=== PATIENT | male | born 1990 | race Two or more races ===

== ENCOUNTER 2020-01-30 15:07 | Emergency (ER) | payer SELFPAY ==
[2020-01-30] MEDS ORDERED: TETRACAINE HCL 0.5% OPH SOLN 4 ML OS ONE (17:15)
--- NOTE | 2020-01-30 17:17 | ER Document Report ---
ED Eye Complaint - General Chief Complaint: Eye Injury Stated Complaint: LEFT EYE INJURY Time Seen by Provider: 01/30/20 17:14 Primary Care Provider: [facility] [Provider Group] - Follow up as needed ZULAY IZQUIERDO DO [ACTIVE STAFF] - Follow up tomorrow Mode of Arrival: Ambulatory Information source: Patient Notes: Patient states that he was playing [employer] with family member and accidentally got shot in the eye 5 days ago. Patient states that since then the pain to the eye has been off and on. Patient states that he does feel light sen sitive. Patient denies any use of glasses or contact lenses. - HPI Onset: Other - 5 days ago Eye location: Left Injury: Yes Occurred at: Home Pain Level: 4 Exposure: Direct trauma Safety glasses worn: No Contact lenses worn: No Associated symptoms: Burning, Pain, Photophobia, Other - Tearing - Related Data Allergies/Adverse Reactions: No Known Allergies Allergy (Verified 01/30/20 17:13) Past Medical History - General Information source: Patient - Social History Smoking Status: Never Smoker Frequency of alcohol use: Occasional Drug Abuse: Marijuana Occupation: [employer] Lives with: Family Family History: Reviewed & Not Pertinent Renal/ Medical History: Reports: Hx Kidney Stones Surgical Hx: Negative Review of Systems - Review of Systems Constitutional: No symptoms reported EENT: Eye pain, Tearing Cardiovascular: No symptoms reported Respiratory: No symptoms reported Gastrointestinal: No symptoms reported. denies: Nausea, Vomiting Genitourinary: No symptoms reported Male Genitourinary: No symptoms reported Musculoskeletal: No symptoms reported Skin: No symptoms reported Hematologic/Lymphatic: No symptoms reported Neurological/Psychological: No symptoms reported Physical Exam - Vital signs Vitals: Temp Pulse Resp BP Pulse Ox 98.5 F 80 18 157/85 H 97 01/30/20 15:37 01/30/20 15:37 01/30/20 15:37 01/30/20 15:37 01/30/20 15:37 - General General appearance: Appears well, Alert In distress: None - HEENT Head: Normocephalic Eyes: Tears Conjunctiva: Injected - Left eye Cornea: Normal, Other - negative angie test. No: Corneal abrasion, Corneal ulcer, Dendrite, Embedded foreign body, Flourescein stain uptake, Opacified, Superficial foreign body Extraocular movements intact: Yes Pupils: PERRL Nasal: Normal Neck: Normal, Supple. No: Lymphadenopathy - Respiratory Respiratory status: No respiratory distress - Cardiovascular Rhythm: Regular Heart sounds: S1 appreciated, S2 appreciated - Extremities General upper extremity: Normal inspection, Normal ROM General lower extremity: Normal inspection, Normal ROM - Neurological Neuro grossly intact: Yes Cognition: Normal [place] Coma Scale Eye Opening: Spontaneous Brenda Coma Scale Verbal: Oriented Brenda Coma Scale Motor: Obeys Commands Brenda Coma Scale Total: 15 - Psychological Associated symptoms: Normal affect, Normal mood - Skin Skin Temperature: Warm Skin Moisture: Dry Skin Color: Normal Course - Re-evaluation Re-evalutation: 01/30/20 18:22 Consulted with regarding patient presentation and diagnostic evaluation. Recommends starting patient on ketorolac and having him follow-up in the office at 8 AM in the morning. States that patient can also use artificial tears. Suspects likely traumatic iritis. 01/30/20 18:23 Patient's intraocular pressure measured and is 18 with a 95% confidence interval. Patient advised of discharge plan of care and is agreeable at this time. Patient plans to follow-up tomorrow in the office with ophthalmology. - Vital Signs Vital signs: Temp Pulse Resp BP Pulse Ox 98.8 F 75 14 156/97 H 97 01/30/20 18:31 01/30/20 18:31 01/30/20 18:31 01/30/20 18:31 01/30/20 18:31 Discharge - Discharge Clinical Impression: Pain, eye, left Eye trauma, superficial Qualifiers: Encounter type: initial encounter Laterality: left Qualified Code(s): S05.8X2A - Other injuries of left eye and orbit, initial encounter Condition: Stable Disposition: HOME, SELF-CARE Instructions: Eyedrop Use ([facility]), Iritis ([facility]) Additional Instructions: Return immediately for any new or worsening symptoms Followup with ophthalmology tomorrow for further evaluation. Call their office at 8 AM for an appointment time. Let the office staff know that Dr. Izquierdo was consulted in the emergency department today and advised you to follow-up in the office tomorrow for recheck. You may use artificial tears [id number] Prescriptions: Ketorolac Tromethamine [Acular] 1 drop OS QID #5 ml Forms: Return to Work Referrals: [facility] [Provider Group] - Follow up as needed ZULAY IZQUIERDO, DO [ACTIVE STAFF] - Follow up tomorrow
[2020-01-30 18:37] VITALS: BP 156/97
== END 2020-01-30 18:38 | disposition home or self-care (01) ==
LOC: ER 15:07
DX: S05.92XA Unspecified injury of left eye and orbit, initial encounter (principal); W20.8XXA Other cause of strike by thrown, projected or falling object, initial encounter; Y93.89 Activity, other specified; F12.10 Cannabis abuse, uncomplicated
CPT/HCPCS: 99283; J3490